=== PATIENT | male | born 1980 | race African-American/Black ===

== ENCOUNTER 2024-05-22 08:54 | Emergency (ER) | payer SELFPAY ==
[~2024-05-22] VITALS: Ht 188 cm; Wt 157.5 kg
[2024-05-22 09:05] VITALS: PULSE 112; RESP 20; TEMP 99.4; O2SAT 93
[2024-05-22] MEDS ORDERED: DIPHENHYDRAMINE25 M2 PO (09:45)
[2024-05-22] MEDS ORDERED: AZITHROMYCIN250 MG PO (09:45)
[2024-05-22] MEDS ORDERED: TYLENOL325 MG PO (09:45)
== END 2024-05-22 10:10 | disposition home or self-care (01) ==
LOC: FSED 08:59
DX: R05.9 Cough, unspecified (principal); J06.9 Acute upper respiratory infection, unspecified; J40 Bronchitis, not specified as acute or chronic; R09.89 Other specified symptoms and signs involving the circulatory and respiratory systems; Z11.52 Encounter for screening for COVID-19
CPT/HCPCS: 0223U; 71046; 83518; 87400; 99284